=== PATIENT | male | born 1970 | race Caucasian/White ===

== ENCOUNTER 2018-10-21 23:43 | Inpatient (IN) | payer MEDICAID ==
[~2018-10-21] VITALS: Ht 167.6 cm; Wt 99.7 kg
[2018-10-21 23:46] VITALS: Ht 167.6 cm; Wt 99.7 kg
[2018-10-21] MEDS ORDERED: SODIUM CHLORIDE 0.9% 1L BAG IV* STA (23:53)
[2018-10-21] MEDS ORDERED: ACETAMINOPHEN 325 MG TAB PO STA (23:53)
[2018-10-21] MEDS ORDERED: CEFEPIME 2GM/50 ML (PMX) 50 ML IVPB STA (23:53)
[2018-10-22] MEDS ORDERED: VANCOMYCIN 1 GM (PMX) 250 ML IVPB ONE
[2018-10-22] MEDS ORDERED: BISACODYL (EC) 5 MG TAB PO PRN (02:00)
[2018-10-22] MEDS ORDERED: ONDANSETRON 4 MG INJ IV PRN (02:00)
[2018-10-22] MEDS ORDERED: ACETAMINOPHEN 325 MG TAB PO PRN (02:00)
[2018-10-22] MEDS ORDERED: NACL 0.9% 3 ML SYG IV SCH (02:00)
[2018-10-22] MEDS ORDERED: HYDROCODONE/APAP (5/325) TAB PO PRN (02:00)
[2018-10-22] MEDS ORDERED: DOCUSATE SODIUM 100 MG CAP PO PRN (02:00)
--- NOTE | 2018-10-22 02:33 | ERD ---
ER Documentation Chief Complaint Chief Complaint fever, NAVARRO, dizziness HPI This is a 47-year-old male, with a fever headache and dizziness over the past few days. Is gotten progressively worse. Has had a runny nose and a cough as well. Cough is mildly productive with white sputum. No focal neurologic complaints. He has had fevers and chills alternating. No sick contacts at home. No recent travel. ROS All systems reviewed and are negative except as per history of present illness. Allergies Allergies: Coded Allergies: No Known Allergy (Unverified , 10/21/18) PMhx/Soc Medical and Surgical Hx: pt denies Medical Hx History of Surgery: Yes (penis) Anesthesia Reaction: No Hx Neurological Disorder: No Hx Respiratory Disorders: No Hx Cardiac Disorders: No Hx Psychiatric Problems: No Hx Miscellaneous Medical Probl: No Hx Alcohol Use: Yes (occassionally) Hx Substance Use: No Hx Tobacco Use: No Smoking Status: Never smoker Physical Exam Vitals Vital Signs Date Temp Pulse Resp B/P (MAP) Pulse Ox O2 O2 Flow FiO2 Time Delivery Rate 10/21/18 102.7 132 24 136/74 98 23:46 (94) Physical Exam Const: No acute distress Head: Atraumatic Eyes: Normal Conjunctiva ENT: Normal External Ears, Nose and Mouth. Neck: Full range of motion. No meningismus. Resp: Clear to auscultation bilaterally Cardio: Regular rate and rhythm, no murmurs Abd: Soft, non tender, non distended. Normal bowel sounds Skin: No petechiae or rashes Back: No midline or flank tenderness Ext: No cyanosis, or edema Neur: Awake and alert Psych: Normal Mood and Affect Result Diagram: 10/22/18 0010 10/22/18 0010 Results 24 hrs Laboratory Tests Test 10/22/18 00:10 10/22/18 00:11 10/22/18 01:39 White Blood Count 15.5 10^3/ul Red Blood Count 5.54 10^6/ul Hemoglobin 16.4 g/dl Hematocrit 48.7 % Mean Corpuscular Volume 87.9 fl Mean Corpuscular Hemoglobin 29.6 pg Mean Corpuscular 33.7 g/dl Hemoglobin Concent Red Cell Distribution Width 12.6 % Platelet Count 205 10^3/UL Mean Platelet Volume 10.5 fl Immature Granulocytes % 0.500 % Neutrophils % 86.9 % Lymphocytes % 5.2 % Monocytes % 6.3 % Eosinophils % 0.8 % Basophils % 0.3 % Nucleated Red Blood Cells % 0.0 /100WBC Immature Granulocytes # 0.080 10^3/ul Neutrophils # 13.5 10^3/ul Lymphocytes # 0.8 10^3/ul Monocytes # 1.0 10^3/ul Eosinophils # 0.1 10^3/ul Basophils # 0.0 10^3/ul Nucleated Red Blood Cells # 0.0 10^3/ul Prothrombin Time 12.8 Sec Prothrombin Time Ratio 1.0 INR International 0.95 Normalized Ratio Activated Partial Thromboplast 32.8 Sec Time Sodium Level 140 mmol/L Potassium Level 3.8 mmol/L Chloride Level 104 mmol/L Carbon Dioxide Level 24 mmol/L Anion Gap 12 Blood Urea Nitrogen 14 mg/dl Creatinine 0.87 mg/dl Est Glomerular Filtrat > 60 mL/min Rate mL/min Glucose Level 170 mg/dl Calcium Level 9.2 mg/dl Total Bilirubin 1.4 mg/dl Direct Bilirubin 0.00 mg/dl Indirect Bilirubin 1.4 mg/dl Aspartate Amino 35 IU/L Transf (AST/SGOT) Alanine 45 IU/L Aminotransferase (ALT/SGPT) Alkaline Phosphatase 152 IU/L Troponin I < 0.012 ng/ml Total Protein 8.5 g/dl Albumin 4.3 g/dl Globulin 4.20 g/dl Albumin/Globulin Ratio 1.02 POC Venous Lactate 2.0 mmol/L Urine Color YELLOW Urine Clarity CLEAR Urine pH 5.0 Urine Specific [place] 1.020 Urine Ketones NEGATIVE mg/dL Urine Nitrite NEGATIVE mg/dL Urine Bilirubin NEGATIVE mg/dL Urine Urobilinogen NEGATIVE mg/dL Urine Leukocyte Esterase NEGATIVE Dangelo/ul Urine Microscopic RBC 0 /HPF Urine Microscopic WBC 0 /HPF Urine Bacteria FEW /HPF Urine Hemoglobin NEGATIVE mg/dL Urine Glucose NEGATIVE mg/dL Urine Total Protein 2+ mg/dl Current Medications Medications Dose Sig/Flores Start Time Status Last (Trade) Ordered Route PRN Stop Time Admin Dose Reason Admin Sodium 2,980 ml BOLUS OVER 2 10/21/18 DC 10/22/18 Chloride HOURS STAT 23:53 00:19 (NS) IV* 10/21/18 23:54 650 mg ONCE STAT 10/21/18 DC 10/22/18 Acetaminophen PO 23:53 00:19 (Tylenol 10/21/18 23:54 Tab) Cefepime HCl 50 ml @ ONCE STAT 10/21/18 DC 10/22/18 100 mls/hr IVPB 23:53 00:19 10/22/18 00:22 Vancomycin 250 ml @ ONCE ONCE 10/22/18 DC 10/22/18 HCl 125 mls/hr IVPB 00:00 01:16 10/22/18 01:59 IV Flush 3 ml PER 10/22/18 (NS 3 ml) PROTOCOL IV 02:00 Ondansetron 4 mg Q6H PRN 10/22/18 HCl (Zofran IV 02:00 Inj) NAUSEA/VOMITI NG 650 mg Q6H PRN 10/22/18 Acetaminophen PO .PAIN 1-3 02:00 (Tylenol OR TEMP Tab) 1 tab Q6H PRN 10/22/18 Acetaminophen PO .MOD PAIN 02:00 / 4-6 Hydrocodone Bitart ([place] (5/325)) Docusate 100 mg Q12H PRN 10/22/18 Sodium PO 02:00 (Colace) .CONSTIPATION Bisacodyl 5 mg DAILY PRN 10/22/18 (Dulcolax) PO 02:00 .CONSTIPATION Procedures/MDM Patient's infectious symptoms have not stabilized and the patient is at risk of rapid decompensation. The patient will be admitted for careful hydration, antibiotic therapy, and infectious source control. Severe Sepsis Assessment: Infectious Source: Likely respiratory End organ damage indicated by: [Lactate > 2.0 mmol/L Hypotension( SBP < 90 or >40 mmHG drop or MAP < 65) Acute Resp Failure (sat < 92% w/o oxygen) Field Hand > 2.0 INR > 1.5 Plt < 100 Bili > 2] Severe Sepsis Managment: Blood Cultures X 2 before broad spectrum antibiotics initiated within 3 hours of recognition. Recognized at 1211 30 ml/kg NS bolus Completed Initial Lactate: 2.0 Repeat Lactate pending Critical Care: Time: 45 minutes, independent of any separately billable procedural time Treatments/Evaluations: Emergent fluid management, while maintaining close respiratory support. Immediate broad spectrum antibiotic therapy. Simultaneous assessment for possible sources in order to direct therapy. Consideration for invasive and chemical support to prevent respiratory or cardiac collapse. Septic Shock Assessment (1 hour post 30 ml/kg fluid bolus): Hypotension (SBP < 90 or 40 mmHg drop, MAP < 65): [No] Lactic acid > 4.0 [No] Perfusion Reassessment for Septic Shock: 99.2. Pulse is 84. Respiratory rate is 18, O2 sat 98% Heart Exam: [Tachycardic] Lung Exam: [No Crackles] Capillary Refill: [Delayed] Peripheral Pulses: [Radially present] Skin: [Mottled, pale] Accepting Care Team: Current data and ongoing care discussed. Time: 1:43 AM Primary Provider: Dwayne Consulting: Pending Outstanding Data: none Departure Diagnosis: Primary Impression: Sepsis Sepsis type: sepsis due to unspecified organism Qualified Codes: A41.9 - Sepsis, unspecified organism Condition: Serious MAYA GAMEZ Oct 22, 2018 02:33
[2018-10-22 03:40] VITALS: BP 120/65; PULSE 89; RESP 18
--- NOTE | 2018-10-22 05:12 | HP ---
Date/Time of Note Date/Time of Note DATE: 10/22/18 TIME: 05:04 Assessment/Plan VTE Prophylaxis SCD applied (from Nsg): Yes Pharmacological prophylaxis: NA/contraindicated Pharm contraindication: low risk/ambulating Lines/Catheters IV Catheter Type (from Nrsg): [place] Assessment/Plan Hospital Course This is a 47-year-old male being admitted to the [facility] floor for: #1 systemic inflammatory response syndrome: Source unknown at this time, possibly viral. CT scan of the brain showed possible mild mucosal thickening which could represent possible sinusitis. Lactic acid levels were within normal values. Will continue broad-spectrum antibiotics at the current time. Will await culture results. Will monitor for any further signs of fevers and/or any additional symptoms. Patient has a negative Kernig's and Brudzinski sign, he does not appear to be confused which makes meningitis less likely at the current time. Will check influenza a and B. #2 obesity: We will check hemoglobin A 1C, lipid panel, TSH, encourage diet and lifestyle modification #3 DVT GI prophylaxis: SCDs, no GI prophylaxis indicated Further treatment strategy will be implemented as per the clinical course. Result Diagram: 10/22/18 0010 10/22/18 0010 Results 24hrs Laboratory Tests Test 10/22/18 00:10 10/22/18 00:11 10/22/18 01:39 10/22/18 02:32 White Blood Count 15.5 H Red Blood Count 5.54 Hemoglobin 16.4 Hematocrit 48.7 Mean Corpuscular 87.9 Volume Mean Corpuscular 29.6 Hemoglobin Mean Corpuscular 33.7 Hemoglobin Concent Red Cell 12.6 Distribution Width Platelet Count 205 Mean Platelet Volume 10.5 H Immature 0.500 H Granulocytes % Neutrophils % 86.9 H Lymphocytes % 5.2 L Monocytes % 6.3 Eosinophils % 0.8 Basophils % 0.3 Nucleated Red Blood 0.0 Cells % Immature 0.080 H Granulocytes # Neutrophils # 13.5 H Lymphocytes # 0.8 Monocytes # 1.0 H Eosinophils # 0.1 Basophils # 0.0 Nucleated Red Blood 0.0 Cells # Prothrombin Time 12.8 Prothrombin Time 1.0 Ratio INR International 0.95 Normalized Ratio Activated 32.8 Partial Thromboplast Time Sodium Level 140 Potassium Level 3.8 Chloride Level 104 Carbon Dioxide Level 24 Anion Gap 12 Blood Urea Nitrogen 14 Creatinine 0.87 Est Glomerular > 60 Filtrat Rate mL/min Glucose Level 170 Calcium Level 9.2 Total Bilirubin 1.4 H Direct Bilirubin 0.00 Indirect Bilirubin 1.4 H Aspartate Amino 35 Transf (AST/SGOT) Alanine 45 Aminotransferase (AL T/SGPT) Alkaline Phosphatase 152 H Troponin I < 0.012 Total Protein 8.5 H Albumin 4.3 Globulin 4.20 H Albumin/Globulin 1.02 Ratio POC Venous Lactate 2.0 0.9 Urine Color YELLOW Urine Clarity CLEAR Urine pH 5.0 Urine Specific 1.020 [place] Urine Ketones NEGATIVE Urine Nitrite NEGATIVE Urine Bilirubin NEGATIVE Urine Urobilinogen NEGATIVE Urine Leukocyte NEGATIVE Esterase Urine Microscopic 0 RBC Urine Microscopic 0 WBC Urine Bacteria FEW A Urine Hemoglobin NEGATIVE Urine Glucose NEGATIVE Urine Total Protein 2+ H HPI/ROS Admit Date/Time Admit Date/Time Oct 22, 2018 at 01:42 Hx of Present Illness Chief complaint: Headaches chills times 1 day This is a 39-year-old male with no past medical history who presented to the emergency department with complaints of chills and headache. Patient came with his daughter. She reports that they were at [employer] and they were outside and he started stating that he was cold and he felt chills. He went inside the car and put the heater on but it did not help. Patient also started complaining of a headache with pain radiating to his upper back and shoulders. Patient denies any chest pain nausea vomiting or cough. He denies any urinary or GI symptoms. Denies any sick contacts. He does work at a [employer]. Denies any nasal discharge or nasal congestion or earaches or sore throat. Patient is at baseline mentation as per her daughter and the patient, he denies any confusion. Allergies: NKDA Medications: None ROS Const: As per HPI Eyes : No pain discharge or redness or change in visual acuity ENT: No pain, sore throat, congestion, congestion, dysphagia or discharge Respiratory: No shortness of breath, cough, sputum, wheezing, or pleuritic pain Cardiovascular: No chest pain, palpitation, PND, or edema GI : no change in appetite, abdominal pain, nausea, vomiting, diarrhea, constipation, or change in the color his stool Genitourinary: No dysuria, hematuria, flank pain , discharge or CVA tenderness Musculoskeletal: No joint pain, back pain, neck pain, restricted range of motion in neck or joints Skin: No rash, bruising or hives Neuro: As per HPI Endocrine: No polyuria, polydipsia, temperature intolerance Psych: No hallucination, depression, anxiety or suicidal ideation PMH/Family/Social Past Medical History Medical History: no pertinent history Medications Current Medications IV Flush (NS 3 ml) 3 ml PER PROTOCOL IV ; Start 10/22/18 at 02:00 Ondansetron HCl (Zofran Inj) 4 mg Q6H PRN IV NAUSEA/VOMITING; Start 10/22/18 at 02:00 Acetaminophen (Tylenol Tab) 650 mg Q6H PRN PO .PAIN 1-3 OR TEMP; Start 10/22/18 at 02:00 Acetaminophen/ Hydrocodone Bitart ([place] (5/325)) 1 tab Q6H PRN PO .MOD PAIN 4- 6 Last administered on 10/22/18at 04:14; Admin Dose 1 TAB; Start 10/22/18 at 02:00 Docusate Sodium (Colace) 100 mg Q12H PRN PO .CONSTIPATION; Start 10/22/18 at 02:00 Bisacodyl (Dulcolax) 5 mg DAILY PRN PO .CONSTIPATION; Start 10/22/18 at 02:00 Coded Allergies: No Known Allergy (Unverified , 10/21/18) Past Surgical History Vasectomy Family History Significant Family History: no pertinent family hx Social History Alcohol Use: none Smoking Status: Never smoker Drug Use: none Exam/Review of Systems Vital Signs Vitals Vital Signs Date Temp Pulse Resp B/P (MAP) Pulse Ox O2 O2 Flow FiO2 Time Delivery Rate 10/22/18 98.0 89 18 120/65 97 03:40 (83) 10/22/18 Room Air 02:54 Intake and Output 10/21/18 10/21/18 10/22/18 1515:00 23:00 07:00 IntakeIntake Total 240 ml BalanceBalance 240 ml Exam Exam General: Patient is a pleasant male currently lying in bed in no acute distress HEENT: Atraumatic, normocephalic. The pupils are equal, round and reactive. Extraocular motor are intact Neck: Supple with full range of motion. No rigidity or meningismus Chest: Nontender Lungs: Clear to auscultation bilaterally no crackles rales or wheezing Heart: Normal S1-S2, Regular rhythm and rate. No murmur, S3, or S4 Abdomen: Obese, soft , nontender, nondistended , bowel sounds are present. No guarding no rebound tenderness , No masses or organomegaly. No costovertebral temporal angle mass Extremities: Normal to inspection, no edema no cyanosis Neurologic: Normal mental status, speech normal, cranial nerves II through XII are intact, motor and sensory are intact, no focal weakness, negative Kernig's, negative Brudzinski Additional Comments PROCEDURE: CT BRAIN WITHOUT CONTRAST CLINICAL INDICATION: 47-year-old male with headaches, sepsis and weakness. TECHNIQUE: The study was performed utilizing The [employer] VCT 64-slice CT scanner. Direct axial sections were obtained from the foramen magnum to the vertex without the use of intravenous contrast material. Sagittal and coronal reformations were obtained. One or more of the following dose reduction techniques were utilized: automated exposure control, adjustment of the mA and/or kV according to patient's size or use of iterative reconstruction technique. DICOM images are available. The images were viewed on a PACS workstation. CTD/vol = 38.79 mGy; Total Exam DLP = 739.31 mGy.cm. COMPARISON: None. FINDINGS: The ventricles have a normal size, shape and position. There is no evidence for mass effect or midline shift. There are no intracranial areas of abnormal attenuation. There is no evidence for acute intra or extra-axial blood. The bony calvarium is intact. There is mild mucosal thickening within the left ethmoid air cells inferior left maxillary sinus. No air-fluid levels are noted. The mastoid air cells are without significant soft tissue. IMPRESSION: 1. The intracranial contents are unremarkable on this noncontrast CT scan of the brain. 2. Mild mucosal thickening left ethmoid air cells inferior left maxillary sinus. .Enoc Marquez MD, Date Time Electronically viewed and signed by .Enoc Marquez MD, MD on 10/22/2018 03:28 .M/ CC: DREW NEWELL [id number] PROCEDURE: Single view chest. CLINICAL INDICATION: Sepsis TECHNIQUE: Single view of the chest was obtained COMPARISON: None FINDINGS: There are scattered linear foci in the lung bases favored to represent atelectasis. No definite effusion or evidence of a pneumothorax. Cardiac silhouette and mediastinal contours are unremarkable. The pulmonary vasculature appears normal. Regional bones are unremarkable. IMPRESSION: Mild linear atelectasis in the lung bases, otherwise no acute findings. RPTAT: [facility] Physician Ml Date Time Electronically viewed and signed by Physician Ml on 10/22/2018 02:11 xB/ CC: MAYA GAMEZ [id number] DREW NEWELL Oct 22, 2018 05:12
[2018-10-22] MEDS ORDERED: VANCOMYCIN IV PER PHARMACY XX SCH (06:30)
[2018-10-22] MEDS ORDERED: VANCOMYCIN 1 GM 250 ML IVPB SCH (07:00)
[2018-10-22 07:57] VITALS: BP 135/71; PULSE 87; RESP 18
[2018-10-22] MEDS: CEFEPIME 1GM/50 ML (PMX) 50 ML IVPB SCH (10:04)
--- NOTE | 2018-10-22 13:38 | PN ---
Date/Time of Note Date/Time of Note DATE: 10/22/18 TIME: 13:35 Assessment/Plan VTE Prophylaxis Risk score (from Ns)>0 risk: 3 SCD applied (from Ns): Yes Pharmacological prophylaxis: NA/contraindicated Pharm contraindication: low risk/ambulating Lines/Catheters [facility] Peripheral IV Assessment/Plan Assessment/Plan 47 yo man with no major PMH admitted with fever. # systemic inflammatory response syndrome: - Source unknown at this time. Likely viral. - CT scan of the brain showed possible mild mucosal thickening which could represent possible sinusitis. - Lactic acid levels were within normal values. Will continue broad-spectrum antibiotics at the current time. - Will await culture results. - Will monitor for any further signs of fevers and/or any additional symptoms. Patient has a negative Kernig's and Brudzinski sign, he does not appear to be confused which makes meningitis less likely at the current time. Will check influenza a and B. # obesity: hemoglobin A 1C, lipid panel, TSH, are fine. I encouraged weight loss. # DVT GI prophylaxis: SCDs, no GI prophylaxis indicated Result Diagram: 10/22/1851310/22/18513 Subjective 24 Hr Interval Summary Free Text/Dictation No acute overnight events. Patient feeling well now, afebrile, no complaints. Exam/Review of Systems Exam Vitals Vital Signs Date Temp Pulse Resp B/P (MAP) Pulse Ox O2 O2 Flow FiO2 Time Delivery Rate 10/22/18 99.8 87 18 135/71 98 Room Air 07:57 (92) Intake and Output 10/21/18 10/21/18 10/22/18 1515:00 23:00 07:00 IntakeIntake Total 240 ml BalanceBalance 240 ml Exam General: Patient is a pleasant male currently lying in bed in no acute distress HEENT: Atraumatic, normocephalic. The pupils are equal, round and reactive. Extraocular motor are intact Neck: Supple with reduced range of motion, but apparently this is chronic. No rigidity or meningismus Chest: Nontender Lungs: Clear to auscultation bilaterally no crackles rales or wheezing Heart: Normal S1-S2, Regular rhythm and rate. No murmur, S3, or S4 Abdomen: Obese, soft , nontender, nondistended , bowel sounds are present. No guarding no rebound tenderness , No masses or organomegaly. No costovertebral temporal angle mass Extremities: Normal to inspection, no edema no cyanosis Results Results 24hrs Laboratory Tests Test 10/22/18 00:10 10/22/18 00:11 10/22/18 01:39 10/22/18 02:32 White Blood Count 15.5 H Red Blood Count 5.54 Hemoglobin 16.4 Hematocrit 48.7 Mean Corpuscular 87.9 Volume Mean Corpuscular 29.6 Hemoglobin Mean Corpuscular 33.7 Hemoglobin Concent Red Cell 12.6 Distribution Width Platelet Count 205 Mean Platelet Volume 10.5 H Immature 0.500 H Granulocytes % Neutrophils % 86.9 H Lymphocytes % 5.2 L Monocytes % 6.3 Eosinophils % 0.8 Basophils % 0.3 Nucleated Red Blood 0.0 Cells % Immature 0.080 H Granulocytes # Neutrophils # 13.5 H Lymphocytes # 0.8 Monocytes # 1.0 H Eosinophils # 0.1 Basophils # 0.0 Nucleated Red Blood 0.0 Cells # Prothrombin Time 12.8 Prothrombin Time 1.0 Ratio INR International 0.95 Normalized Ratio Activated 32.8 Partial Thromboplast Time Sodium Level 140 Potassium Level 3.8 Chloride Level 104 Carbon Dioxide Level 24 Anion Gap 12 Blood Urea Nitrogen 14 Creatinine 0.87 Est Glomerular > 60 Filtrat Rate mL/min Glucose Level 170 Calcium Level 9.2 Total Bilirubin 1.4 H Direct Bilirubin 0.00 Indirect Bilirubin 1.4 H Aspartate Amino 35 Transf (AST/SGOT) Alanine 45 Aminotransferase (AL T/SGPT) Alkaline Phosphatase 152 H Troponin I < 0.012 Total Protein 8.5 H Albumin 4.3 Globulin 4.20 H Albumin/Globulin 1.02 Ratio POC Venous Lactate 2.0 0.9 Urine Color YELLOW Urine Clarity CLEAR Urine pH 5.0 Urine Specific 1.020 [place] Urine Ketones NEGATIVE Urine Nitrite NEGATIVE Urine Bilirubin NEGATIVE Urine Urobilinogen NEGATIVE Urine Leukocyte NEGATIVE Esterase Urine Microscopic 0 RBC Urine Microscopic 0 WBC Urine Bacteria FEW A Urine Hemoglobin NEGATIVE Urine Glucose NEGATIVE Urine Total Protein 2+ H Test 10/22/18 05:14 White Blood Count 13.1 H Red Blood Count 4.77 Hemoglobin 14.1 Hematocrit 42.2 Mean Corpuscular 88.5 Volume Mean Corpuscular 29.6 Hemoglobin Mean Corpuscular 33.4 Hemoglobin Concent Red Cell 13.0 Distribution Width Platelet Count 176 Mean Platelet Volume 10.7 H Immature 0.500 H Granulocytes % Neutrophils % 85.2 H Lymphocytes % 9.9 L Monocytes % 3.6 Eosinophils % 0.5 Basophils % 0.3 Nucleated Red Blood 0.0 Cells % Immature 0.060 H Granulocytes # Neutrophils # 11.2 H Lymphocytes # 1.3 Monocytes # 0.5 Eosinophils # 0.1 Basophils # 0.0 Nucleated Red Blood 0.0 Cells # Sodium Level 141 Potassium Level 4.0 Chloride Level 111 H Carbon Dioxide Level 23 Anion Gap 7 Blood Urea Nitrogen 11 Creatinine 0.65 Est Glomerular > 60 Filtrat Rate mL/min Glucose Level 140 Hemoglobin A1c 6.4 H Lactic Acid Level 1.6 Calcium Level 7.7 L Magnesium Level 1.6 L Total Bilirubin 1.7 H Direct Bilirubin 0.00 Indirect Bilirubin 1.7 H Aspartate Amino 24 Transf (AST/SGOT) Alanine 38 Aminotransferase (AL T/SGPT) Alkaline Phosphatase 98 Total Protein 6.1 # Albumin 3.0 #L Globulin 3.10 Albumin/Globulin 0.96 Ratio Triglycerides Level 133 Cholesterol Level 130 LDL Cholesterol, 82 Calculated HDL Cholesterol 21 L Cholesterol/HDL 6.1 Ratio Thyroid Stimulating 1.180 Hormone (TSH) Medications Medication Current Medications IV Flush (NS 3 ml) 3 ml PER PROTOCOL IV ; Start 10/22/18 at 02:00 Ondansetron HCl (Zofran Inj) 4 mg Q6H PRN IV NAUSEA/VOMITING; Start 10/22/18 at 02:00 Acetaminophen (Tylenol Tab) 650 mg Q6H PRN PO .PAIN 1-3 OR TEMP; Start 10/22/18 at 02:00 Acetaminophen/ Hydrocodone Bitart ([place] (5/325)) 1 tab Q6H PRN PO .MOD PAIN 4- 6 Last administered on 10/22/18at 04:14; Admin Dose 1 TAB; Start 10/22/18 at 02:00 Docusate Sodium (Colace) 100 mg Q12H PRN PO .CONSTIPATION; Start 10/22/18 at 02:00 Bisacodyl (Dulcolax) 5 mg DAILY PRN PO .CONSTIPATION; Start 10/22/18 at 02:00 Vancomycin HCl (Vanco Iv Per Pharmacy) VANCOMYCIN PER PHARMACY PER PROTOCOL XX ; Start 10/22/18 at 06:30 Cefepime HCl 50 ml @ 100 mls/hr Q12 IVPB Last administered on 10/22/18at 10:04; Admin Dose 100 MLS/HR; Start 10/22/18 at 09:00 Vancomycin HCl 1.5 gm/Sodium Chloride 250 ml @ 83.333 mls/ hr Q12H IVPB ; Start 10/22/18 at 20:00 DONTAE WELCH MD Oct 22, 2018 13:37
[2018-10-22 14:00] VITALS: BP 98/55; PULSE 101; RESP 18
[2018-10-22 20:25] VITALS: BP 112/71; PULSE 95; RESP 18
[2018-10-22] MEDS: VANCOMYCIN HCL 1.5 GM in SOD CHLORIDE 0.9% 250 ML IVPB SCH (21:56)
[2018-10-23] MEDS: CEFEPIME 1GM/50 ML (PMX) 50 ML IVPB SCH ×2 (01:30→11:19)
[2018-10-23 02:30] VITALS: BP 118/67; PULSE 92; RESP 18
[2018-10-23 07:54] VITALS: BP 116/78; PULSE 81; RESP 18
[2018-10-23] MEDS: VANCOMYCIN HCL 1.5 GM in SOD CHLORIDE 0.9% 250 ML IVPB SCH (08:03)
[2018-10-23 14:14] VITALS: BP 125/69; PULSE 81; RESP 18
--- NOTE | 2018-10-23 14:16 | PDOCDIS ---
Discharge Instructions DIAGNOSIS Discharge Diagnosis Sepsis due to a viral infection CONDITION [id number] Patient Condition: [id number] Good HOME CARE INSTRUCTIONS: [id number] Diet Instructions: [id number] Regular ACTIVITY: [id number] Activity Restrictions: [id number] No Restrictions FOLLOW UP/APPOINTMENTS Follow-up Plan 1. For headache, take acetaminophen or ibuprofen. 2. If your symptoms worsen or fever comes back, consider going to urgent care. DONTAE WELCH MD Oct 23, 2018 14:16
--- NOTE | 2018-10-23 17:33 | DS ---
Date/Time of Note Date/Time of Note DATE: 10/23/18 TIME: 17:31 Discharge Summary Admission/Discharge Info Admit Date/Time Oct 22, 2018 at 01:42 Discharge Date/Time Oct 23, 2018 at 16:55 Discharge Diagnosis Sepsis due to a viral infection Patient Condition: Good Hx of Present Illness Chief complaint: Headaches chills times 1 day This is a 39-year-old male with no past medical history who presented to the emergency department with complaints of chills and headache. Patient came with his daughter. She reports that they were at [employer] and they were outside and he started stating that he was cold and he felt chills. He went inside the car and put the heater on but it did not help. Patient also started complaining of a headache with pain radiating to his upper back and shoulders. Patient denies any chest pain nausea vomiting or cough. He denies any urinary or GI symptoms. Denies any sick contacts. He does work at a [employer] Denies any nasal discharge or nasal congestion or earaches or sore throat. Patient is at baseline mentation as per her daughter and the patient, he denies any confusion. Allergies: NKDA Medications: None Hospital Course Patient was monitored on the med/surg floor. Aside from mild tension headaches, remained asymptomatic. He did continue to have mildly elevated temperatures, highest 100.4. Blood cultures and urine cultures no growth x1 day. Influenza did not result. He will be discharged without antibiotics for likely viral infection. Home Meds No Active Prescriptions or Reported Meds Follow-up Plan 1. For headache, take acetaminophen or ibuprofen. 2. If your symptoms worsen or fever comes back, consider going to urgent care. Primary Care Provider Care Physician No Primary Time spent on discharge: > 30 minutes Pending Labs Laboratory Tests Test 10/23/18 07:36 White Blood Count 6.3 10^3/ul (4.8-10.8) Red Blood Count 5.14 10^6/ul (4.70-6.10) Hemoglobin 15.3 g/dl (14.0-18.0) Hematocrit 45.5 % (42.0-52.0) Mean Corpuscular Volume 88.5 fl (82.0-101.0) Mean Corpuscular Hemoglobin 29.8 pg (29.0-33.0) Mean Corpuscular Hemoglobin Concent 33.6 g/dl (32.0-37.0) Red Cell Distribution Width 13.0 % (11.5-14.5) Platelet Count 161 10^3/UL (140-415) Mean Platelet Volume 10.5 fl (7.4-10.4) Immature Granulocytes % 0.300 % (0.001-0.429) Neutrophils % 66.8 % (39.0-77.0) Lymphocytes % 21.0 % (15.0-51.0) Monocytes % 9.0 % (0.0-11.0) Eosinophils % 2.4 % (0.0-7.0) Basophils % 0.5 % (0.0-2.0) Nucleated Red Blood Cells % 0.0 /100WBC (0.0-0.0) Immature Granulocytes # 0.020 10^3/ul (0.0-0.031) Neutrophils # 4.2 10^3/ul (1.6-7.5) Lymphocytes # 1.3 10^3/ul (0.8-2.9) Monocytes # 0.6 10^3/ul (0.3-0.9) Eosinophils # 0.2 10^3/ul (0.0-0.5) Basophils # 0.0 10^3/ul (0.0-0.1) Nucleated Red Blood Cells # 0.0 10^3/ul (0.0-0.0) Sodium Level 139 mmol/L (135-144) Potassium Level 3.9 mmol/L (3.5-5.1) Chloride Level 104 mmol/L (97-110) Carbon Dioxide Level 26 mmol/L (21-31) Anion Gap 9 (5-13) Blood Urea Nitrogen 11 mg/dl (7-20) Creatinine 0.76 mg/dl (0.61-1.24) Est Glomerular Filtrat Rate mL/min > 60 mL/min (>60) Glucose Level 119 mg/dl (70-220) Calcium Level 8.7 mg/dl (8.4-10.2) Total Bilirubin 1.8 mg/dl (0.2-1.3) Direct Bilirubin 0.00 mg/dl (0.00-0.20) Indirect Bilirubin 1.8 mg/dl (0-1.1) Aspartate Amino Transf (AST/SGOT) 38 IU/L (15-46) Alanine Aminotransferase (ALT/SGPT) 42 IU/L (13-69) Alkaline Phosphatase 105 IU/L (42-121) Total Protein 7.2 g/dl (6.1-8.1) Albumin 3.6 g/dl (3.3-4.9) Globulin 3.60 g/dl (1.3-3.2) Albumin/Globulin Ratio 1.00 DONTAE WELCH MD Oct 23, 2018 17:33
== END 2018-10-23 16:55 | disposition home or self-care (01) | DRG 872 ==
LOC: E/R 23:43 → PP2 10-22 01:42
PROVIDERS: ADMIT Family Medicine; ATTEND Internal Medicine
DX: A41.89 Other specified sepsis (principal); B97.89 Other viral agents as the cause of diseases classified elsewhere; E66.9 Obesity, unspecified
CPT/HCPCS: 36415; 70450; 71045; 80053; 80061; 81001; 83036; 83605; 83735; 84443; 84484; 85025; 85610; 85730; 87045; 87086; 93005; 96374; 96375; J0692; J3370; J7030; J7050